=== PATIENT | female | born 1965 | race Caucasian/White ===

== ENCOUNTER → 2019-07-26 | Outpatient (CLI) | payer BC ==
--- NOTE | 2019-07-31 12:54 | MY ---
Date of Service: 07/26/19 Clinical Data: SCREENING MAMMOGRAM FOR BREAST CANCER BILATERAL MAMMOGRAMS: Comparison is made to prior bilateral mammograms dated 07/2018 and left breast mammogram dated 08/04/18 and 05/11/19. There are scattered fibroglandular densities in both breasts. There is stable asymmetry. The nodular densities in the central aspect of the left breast on the prior craniocaudal views have decreased in size from the prior exam. No other interval changes bilaterally. No evidence of malignancy. IMPRESSION: No evidence of malignancy. One year followup mammography is recommended. BI-RAD B: Mammogram - There are scattered areas of fibroglandular density ACR 1 - Negative Mammogram. The exam was reviewed with R2 CAD. [id number] [facility]
== END ==
LOC: LB.MAM 12:51
PROVIDERS: ATTEND Obstetrics & Gynecology
DX: Z12.31 Encounter for screening mammogram for malignant neoplasm of breast (principal)
CPT/HCPCS: 77067

== ENCOUNTER 2021-08-31 20:18 | Emergency (ER) | payer BC ==
--- NOTE | 2021-08-31 21:04 | EDM.PDOC ---
ED HPI GENERAL MEDICAL PROBLEM - General Chief Complaint: Cardiovascular Problem Stated Complaint: blood pressure high Time Seen by Provider: 08/31/21 20:40 Source of Information: Reports: Patient History Limitations: Reports: No Limitations - History of Present Illness INITIAL COMMENTS - FREE TEXT/NARRATIVE: 56-year-old female presents the ED with a complaint of hypertension. Patient happened to take her blood pressure a few times today noticing that her blood pressure was high got concerned and came into the ER. No symptoms associated with the hypertension that initiated her visit. She has had some chest tightness over the last 2 months minor in nature which she does not believe to be cardiac. 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 ED EXAM, GENERAL - Physical Exam Exam: See Below Free Text/Narrative:: ABC intact. No apparent distress. No obvious trauma. Speaking in full sentences. Alert and oriented x3, GCS 456. Exam Limited By: No Limitations General Appearance: Alert, WD/WN, No Apparent Distress Eye Exam: Bilateral Eye: EOMI, PERRL Ears: Normal External Exam, Hearing Grossly Normal Nose: Normal Inspection, Normal Mucosa, No Blood Head: Atraumatic, Normocephalic Respiratory/Chest: No Respiratory Distress, Lungs Clear, Normal Breath Sounds, No Accessory Muscle Use, Chest Non-Tender Cardiovascular: Normal Peripheral Pulses, Regular Rate, Rhythm, No Edema, No Gallop, No JVD, No Murmur, No Rub Peripheral Pulses: 2+: Radial (L), Radial (R) GI/Abdominal: Soft, Non-Tender, No Distention, No Mass Extremities: Normal Inspection, No Pedal Edema Neurological: Alert, Oriented, Normal Cognition Psychiatric: Normal Affect, Normal Mood Skin Exam: Warm, Dry, Intact, Normal Color, No Rash #1 Interpretation EKG Date: 08/31/21 (Normal sinus rhythm without ectopy, no ST elevation or depression, this is not a STEMI) Course - Orders/Labs/Meds Orders: Active Orders 24 hr Category Date Time Status CULTURE URINE [RM] Stat Lab 08/31/21 20:58 Received Labs: Laboratory Tests 08/31/21 08/31/21 08/31/21 Range/Units 20:58 21:20 21:20 WBC 11.2 H (4.0-11.0) K/uL RBC 4.32 (3.80-5.80) M/uL Hgb 13.8 (11.5-16.5) g/dL Hct 40.5 (37.0-47.0) % MCV 94 (76-96) fL MCH 31.9 (27.0-32.0) pg MCHC 34.1 (31.0-35.0) g/dL RDW 12.9 (11.0-16.0) % Plt Count 371 (150-500) K/uL MPV 9.2 (6.0-10.0) fL Neut % (Auto) 51.2 (45.0-70.0) % Lymph % (Auto) 39.0 (20.0-40.0) % [place] % (Auto) 6.0 (3.0-10.0) % Eos % (Auto) 3.3 (1.0-5.0) % Baso % (Auto) 0.5 (0.0-0.5) % Neut # (Auto) 5.75 (2.00-7.50) K/uL Lymph # (Auto) 4.38 H (1.50-4.00) K/uL [place] # (Auto) 0.67 (0.20-0.80) K/uL Eos # (Auto) 0.37 (0.04-0.40) K/uL Baso # (Auto) 0.06 (0.02-0.10) K/uL Sodium 142 (136-145) mmol/L Potassium 3.7 (3.5-5.1) mmol/L Chloride 106 (98-107) mmol/L Carbon Dioxide 27.0 (21.0-32.0) mmol/L Anion Gap 12.7 (5.0-15.0) mmol/L BUN 14 (8-26) mg/dL Creatinine 0.74 (0.55-1.02) mg/dL Est Cr Clr Drug Dosing TNP Estimated GFR (MDRD) > 60 (>60) MLS/MIN BUN/Creatinine Ratio 18.9 (6-25) Glucose 115 H (74-100) mg/dL Calcium 9.0 (8.5-10.1) mg/dL Troponin I (0.000-0.060) ng/mL Urine Color Yellow Urine Appearance Clear (CLEAR) Urine pH 5.5 (5.0-8.0) Ur Specific [place] 1.025 (1.003-1.030) Urine Protein Negative (NEGATIVE) mg/dL Urine Glucose (UA) Negative (NEGATIVE) mg/dL Urine Ketones Negative (NEGATIVE) mg/dL Urine Occult Blood Trace-intact H (NEGATIVE) Urine Nitrite Positive H (NEGATIVE) Urine Bilirubin Negative (NEGATIVE) Urine Urobilinogen 0.2 (0.2-1.0) E.U./dL Ur Leukocyte Esterase Negative (NEGATIVE) Urine RBC 0-5 H /HPF Urine WBC 0-5 H /HPF Ur Squamous Epith Cells Occasional /HPF Urine Bacteria Few /HPF 08/31/21 Range/Units 21:20 WBC (4.0-11.0) K/uL RBC (3.80-5.80) M/uL Hgb (11.5-16.5) g/dL Hct (37.0-47.0) % MCV (76-96) fL MCH (27.0-32.0) pg MCHC (31.0-35.0) g/dL RDW (11.0-16.0) % Plt Count (150-500) K/uL MPV (6.0-10.0) fL Neut % (Auto) (45.0-70.0) % Lymph % (Auto) (20.0-40.0) % [place] % (Auto) (3.0-10.0) % Eos % (Auto) (1.0-5.0) % Baso % (Auto) (0.0-0.5) % Neut # (Auto) (2.00-7.50) K/uL Lymph # (Auto) (1.50-4.00) K/uL [place] # (Auto) (0.20-0.80) K/uL Eos # (Auto) (0.04-0.40) K/uL Baso # (Auto) (0.02-0.10) K/uL Sodium (136-145) mmol/L Potassium (3.5-5.1) mmol/L Chloride (98-107) mmol/L Carbon Dioxide (21.0-32.0) mmol/L Anion Gap (5.0-15.0) mmol/L BUN (8-26) mg/dL Creatinine (0.55-1.02) mg/dL Est Cr Clr Drug Dosing Estimated GFR (MDRD) (>60) MLS/MIN BUN/Creatinine Ratio (6-25) Glucose (74-100) mg/dL Calcium (8.5-10.1) mg/dL Troponin I < 0.017 (0.000-0.060) ng/mL Urine Color Urine Appearance (CLEAR) Urine pH (5.0-8.0) Ur Specific [place] (1.003-1.030) Urine Protein (NEGATIVE) mg/dL Urine Glucose (UA) (NEGATIVE) mg/dL Urine Ketones (NEGATIVE) mg/dL Urine Occult Blood (NEGATIVE) Urine Nitrite (NEGATIVE) Urine Bilirubin (NEGATIVE) Urine Urobilinogen (0.2-1.0) E.U./dL Ur Leukocyte Esterase (NEGATIVE) Urine RBC /HPF Urine WBC /HPF Ur Squamous Epith Cells /HPF Urine Bacteria /HPF Departure - Departure Time of Disposition: 10:10 Disposition: Home, Self-Care 01 Condition: Good Clinical Impression: Hypertension Qualifiers: Hypertension type: unspecified Qualified Code(s): I10 - Essential (primary) hypertension Prescriptions: hydroCHLOROthiazide [Hydrochlorothiazide] 12.5 mg PO DAILY #30 tablet Instructions: Hypertension, Adult Forms: ED Department Discharge Additional Instructions: Fill Rx Take meds Follow up in Clinic in next 2 weeks - My Orders Last 24 Hours: My Active Orders 08/31/21 20:58 CULTURE URINE [RM] Stat - Assessment/Plan Last 24 Hours: My Active Orders 08/31/21 20:58 CULTURE URINE [RM] Stat Assessment:: 56-year-old female who presents for evaluation of elevated blood pressure. There no history of hypertension in the past. The work-up here is negative and the patient does not have any clinical/laboratory/EKG or historical signs of endorgan dysfunction. There are no signs of hypertensive emergency or urgency. Supportive outpatient management is therefore indicated with close follow-up with primary care physician. Given data obtained here in the ED, I will initiate 12.5 mg hydrochlorothiazide once daily for therapy at this time and encouraged serial blood pressure monitoring at home to aid primary in decision making regarding hypertension. Plan: ABC, history, exam, labs CBC BMP troponin, EKG, UA, patient education/shared decision-making, ambulatory prescription written for hydrochlorothiazide 12.5 mg once daily, to be followed up by primary care physician and managed. -Patient and/or retail service representative understood and agreed to treatment plan. -All questions were answered to the patient's satisfaction. -Patient is discharged in stable condition. Patient to return to the ED if she develops shortness of breath, chest pain, severe headache, nausea vomiting. Follow-up with primary care provider within 2 weeks.
== END 2021-08-31 22:08 | disposition home or self-care (01) ==
LOC: LB.ED 20:18
DX: I10 Essential (primary) hypertension (principal); Z79.899 Other long term (current) drug therapy
CPT/HCPCS: 36415; 80048; 81001; 84484; 85025; 87086; 93005; 99283-25